=== PATIENT | female | born 1980 ===

== ENCOUNTER 2018-11-16 15:27 | Outpatient (RCR) | payer OTHER ==
[2018-09-14 16:31] VITALS: BP 130/80
--- NOTE | 2018-09-15 21:55 | [facility] ONCOLOGY NOTE ---
EVENT DATE: September 14, 2018 REFERRING PHYSICIAN GUSTAVO Coy REASON FOR CONSULTATION Evaluation and management of iron deficiency anemia. HEMATOLOGY HISTORY Patient is a 37-year-old female with insignificant past medical history who was found to have iron deficiency anemia since February 2016. Her ferritin in February 2016 was 5, and in May 2017, it was 13. In May 2018, it was 4, and on September 06, 2018, it was 10. The patient has been taking one capsule of iron supplementation daily for the last three months. Patient denies any excessive menses or GI bleeding. She had an injury after skiing, and she had pain in her neck, left shoulder, and left hip, and she has been using a lot of aspirin and nonsteroidal anti-inflammatory drugs for years. Her CBC on the August showed white count 5.2, hemoglobin 11.7, hematocrit 36.3, and platelet count 192,000. MCV was low at 79. Iron studies showed ferritin of 10, serum iron 16, iron saturation 5%, TIBC 317. PAST MEDICAL HISTORY Insignificant. PAST SURGICAL HISTORY Tonsillectomy. FAMILY HISTORY Paternal grandmother had pancreatic cancer. Paternal grandfather had prostate cancer. Her father has arteriovenous malformation of the lower spine. SOCIAL HISTORY Patient is single with no children. 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 She is a never smoker. She drinks alcohol rarely. Denies any abuse of illicit drugs. CURRENT MEDICATIONS 1. Gabapentin 300 mg daily. 2. Escitalopram oxalate 10 mg daily. 3. Pantoprazole 40 mg daily. 4. Bupropion 200 mg daily. 5. vitamin with iron one capsule daily. ALLERGIES No known drug allergies. REVIEW OF SYSTEMS CONSTITUTIONAL: No appetite or weight change. No fever, chills or sweating. No recent infection. HEENT: Ears: No tinnitus or hearing problem. Nose: No nasal discharge or epistaxis. Throat: No sore throat or mouth ulcers. Eyes: No diplopia or visual changes. RESPIRATORY: She has shortness of breath. No cough, expectoration, or hemoptysis. CARDIOVASCULAR: No chest pain, orthopnea, or paroxysmal nocturnal dyspnea (PND). No edema. No palpitations. GASTROINTESTINAL: No nausea or vomiting. No diarrhea. She has constipation. No change in bowel movements. No heartburn or swallowing difficulties. No abdominal pain. No jaundice. No hematemesis, melena or rectal bleeding. GENITOURINARY: No hematuria or dysuria. MUSCULOSKELETAL: She has pain in the neck, left shoulder, and left hip due to her previous injury. NEUROLOGICAL: No tingling or numbness in the hands or feet. No headaches or convulsions. HEMATOLOGIC/LYMPHATIC: No bleeding or easy bruising. She is weak, tired, and fatigued. No enlarged lymph nodes. SKIN: No skin rash or lumps. PSYCHIATRIC: No anxiety or depression. PHYSICAL EXAMINATION GENERAL: Looks stable. Well developed, well nourished, and in no acute distress. VITAL SIGNS: Blood pressure 130/80, pulse 107 per minute, respirations 16 per minute, temperature 98.4, pulse ox 96 % on room air. HEENT: Head: Atraumatic. No sinus tenderness to palpation. Eyes: No icterus or conjunctivitis. Mouth and throat: No oral thrush or mucositis. NECK: Supple. No cervical or supraclavicular lymphadenopathy. LUNGS: Clear to auscultation and percussion bilaterally. HEART: Regular rate and rhythm. No gallops, murmurs, clicks, or rubs. ABDOMEN: Soft and lax. No tenderness. No hepatosplenomegaly. No masses. EXTREMITIES: No cyanosis, clubbing, or edema. LYMPHATICS: No peripheral lymphadenopathy. NEUROLOGICAL: Conscious, alert, and oriented times three. No focal motor or sensory deficits. PSYCHIATRIC: Mood and affect appear normal. SKIN: No skin rash, bruise, or purpuric eruption. ASSESSMENT Iron deficiency anemia. Cause is obscure at the moment. I am planning to check her stools for fecal blood as the patient does not have any heavy periods or having gastrointestinal bleeding, but she has been using aspirin and nonsteroidal anti-inflammatory drugs for her pain in her neck, left shoulder, and left hip from her skiing injury in the past. The patient is using only one capsule of iron daily, which I do not think is enough to correct her iron deficiency. For this reason, I am planning to put her on ferrous sulfate 325 mg three times daily. If the patient will have positive fecal occult blood, I am planning to send the patient to Dr. Ellis for gastrointestinal workup with esophagogastroduodenoscopy and colonoscopy. I will see her in two months with CBC and iron studies with ferritin at that time. If her iron is not corrected by full-dose iron supplement in two months, then I will check for celiac disease, and I will treat her with intravenous iron supplementation. I explained that to the patient, and she is agreeable with the plan of management. PLAN 1. Ferrous sulfate 325 mg three times daily with meals. 2. Patient to return in two months with CBC and iron studies with ferritin. 3. Consider IV iron supplementation if oral iron does not correct her iron deficiency. 4. Hemoccult blood in the stools. 5. Consider GI workup if Hemoccult blood in the stools is positive. 6. Patient to contact us for any new concerns or complaints. ALISON
[~2018-11-16 15:27] MED LIST: AMOX600S32 PO; BUPR200T34; DEXAMETHASONE SOD 4 MG/ML VIAL ONE; ESCI10TA8 PO; GABA-549 PO; HYDR473S9; HYDROmorphone HCL 2 MG/ML SDV ONE; KETAMINE HCL-NS 50 MG/5 ML SYR ONE; LIDOCAINE MPF 1% 5 ML VIAL ONE; ONDA4TAB97 PO; ONDANSETRON 4 MG/2 ML VIAL ONE; PANT40SU3 PO; PNV1CAPS PO; PRED20TA6 PO; PROM25SU8 PR; PROPOFOL EMUL(*) 10MG/ML 20 ML 0 ML ONE; ROCURONIUM BROM 10 MG/ML 10 ML ONE; SUGAMMADEX SOD 200 MG/2 ML SDV ONE; fentaNYL CITR 250 MCG/5 ML AMP ONE
[2018-11-16 15:40] VITALS: BP 113/75
--- NOTE | 2018-11-18 23:04 | ONCOLOGY FOLLOW UP NOTE ---
EVENT DATE: November 16, 2018 CHIEF COMPLAINT Followup for iron deficiency anemia. HISTORY OF PRESENT ILLNESS Patient is a 37-year-old female who was seen today in followup. She continues on ferrous sulfate which she is tolerating fairly well. She has some mild constipation. She has noted no melena or abdominal pain. In terms of fatigue, she has noted much improvement. She denies excessive menses. She otherwise has no new complaints. HEMATOLOGY HISTORY Patient is a 37-year-old female who was found to have iron deficiency since February 2016. At that time, ferritin was 5, and in May 2017, it was 13. In August 2018, it had decreased to 10. She was started on ferrous sulfate 325 mg t.i.d. She denies excessive menses and has had no issues with melena or abdominal pain. PAST MEDICAL HISTORY Iron deficiency anemia. SURGICAL HISTORY Tonsillectomy. FAMILY HISTORY Paternal grandmother had pancreatic cancer. Paternal grandfather had prostate cancer. Father has an AV malformation of the lower spine. SOCIAL HISTORY Patient is single. She has no children. She works in [employer] at the [employer]. She is a never smoker. She drinks alcohol rarely. She denies any use of illicit drugs. CURRENT MEDICATIONS 1. Ferrous sulfate 325 mg t.i.d. 2. Bupropion 200 mg daily. 3. Escitalopram 10 mg daily. 4. Gabapentin 300 mg daily. 5. Pantoprazole 40 mg daily. ALLERGIES No known drug allergies. REVIEW OF SYSTEMS A 12-point review of systems is performed and is negative except as stated above. PHYSICAL EXAMINATION VITAL SIGNS: Weight 54.6 kg. BP 113/75, P 86, R 16, temp 99, O2 sat 96%. GENERAL: Patient is a well-developed, well-nourished female in no acute distress. HEAD: Normocephalic, atraumatic. EYES: Sclerae anicteric. MOUTH: Moist mucous membranes. CARDIOVASCULAR: Heart rate regular, 86 per minute, without murmur, S3, or S4. LUNGS: Clear bilaterally. EXTREMITIES: No edema. NEUROLOGIC: Nonfocal. LABORATORY CBC on 11/08/18 showed a WBC of 5.6, hemoglobin 14.3, hematocrit 41.5, platelets 190,000. Serum iron 42, iron saturation 16%, ferritin 51. IMPRESSION AND PLAN The patient is a 37-year-old female with iron deficiency anemia. She began the ferrous sulfate 325 mg t.i.d., and symptoms as well as lab work have improved significantly. She denies excessive menses or any evidence of gastrointestinal bleeding. She previously used aspirin and nonsteroidals for pain due to a skiing accident. 1. Iron deficiency anemia. Labs have improved significantly. At this point, she will continue ferrous sulfate 325 mg t.i.d. Will recheck her CBC and iron studies in three months, and further decisions will be made at that time regarding continuing treatment. 2. Gastrointestinal. Describes some mild constipation with dark stools from the iron therapy. She has had no issues with melena or abdominal pain. Orders were placed for Hemoccult blood, but this did not occur. However, as labs have improved significantly, will defer at this time. 3. Follow up in three months for continued care. CBC and iron studies will be drawn at [facility] before that appointment. ALISON
== END 2018-12-12 ==
LOC: ONC 15:27
PROVIDERS: ATTEND Internal Medicine Hematology
DX: D50.9 Iron deficiency anemia, unspecified (principal); K59.00 Constipation, unspecified
CPT/HCPCS: 99202; 99212; J1100; J1170; J2001; J2405; J2704; J3010; J3490

== ENCOUNTER 2019-02-13 14:20 | Outpatient (RCR) | payer OTHER ==
[~2019-02-13 14:20] MED LIST changes: -DEXAMETHASONE SOD 4 MG/ML VIAL ONE; -HYDROmorphone HCL 2 MG/ML SDV ONE; -KETAMINE HCL-NS 50 MG/5 ML SYR ONE; -LIDOCAINE MPF 1% 5 ML VIAL ONE; -ONDANSETRON 4 MG/2 ML VIAL ONE; -PROPOFOL EMUL(*) 10MG/ML 20 ML 0 ML ONE; -ROCURONIUM BROM 10 MG/ML 10 ML ONE; -SUGAMMADEX SOD 200 MG/2 ML SDV ONE; -fentaNYL CITR 250 MCG/5 ML AMP ONE
[2019-02-13 14:29] VITALS: BP 124/81
--- NOTE | 2019-02-14 11:40 | ONCOLOGY FOLLOW UP NOTE ---
EVENT DATE: February 13, 2019 CHIEF COMPLAINT Followup for iron deficiency anemia. HISTORY OF PRESENT ILLNESS Laxmi is a 37-year-old woman who is being seen today for followup on her iron deficiency anemia. She was placed on iron sulfate t.i.d. back in August. She reports that she remains on oral ferrous sulfate but decreased herself down to one pill per day, although admits that she was not instructed to do so. She has been tolerating this well. She has some mild constipation related to that but reports that this is manageable. She has not noted any melena. No abdominal pain. As far as fatigue, she continues to report improvement. She has some fatigue but tells me this is not as severe as it was when she first was diagnosed. She denies any heavy menses. She denies any PICA syndrome, including no significant chewing on ice or dirt. Appetite is good. No fevers or chills. She has only occasional joint aches in her hands bilaterally but reports that this may be more degenerative in nature and unrelated to her iron deficiency anemia. 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 She recently returned from vacationing in [place]. HEMATOLOGY HISTORY Patient is a 37-year-old female who was found to have iron deficiency since February 2016. At that time, ferritin was 5, and in May 2017, it was 13. In August 2018, it had decreased to 10. She was started on ferrous sulfate 325 mg t.i.d. She denies excessive menses and has had no issues with melena or abdominal pain. PAST MEDICAL HISTORY Iron deficiency anemia. SURGICAL HISTORY Tonsillectomy. FAMILY HISTORY Paternal grandmother had pancreatic cancer. Paternal grandfather had prostate cancer. Father has an AV malformation of the lower spine. SOCIAL HISTORY Patient is single. She has no children. 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 She is a never smoker. She drinks alcohol rarely. She denies any use of illicit drugs. CURRENT MEDICATIONS 1. Ferrous sulfate 325 mg t.i.d. 2. Bupropion 200 mg daily. 3. Escitalopram 10 mg daily. 4. Gabapentin 300 mg daily. 5. Pantoprazole 40 mg daily. ALLERGIES No known drug allergies. REVIEW OF SYSTEMS CONSTITUTIONAL: Patient denies any recent fevers, chills or night sweats. No recent infections. She has some fatigue but overall this has improved. HEENT: No vision changes. No tinnitus. No mouth sores. No PICA syndrome. LUNGS: No cough, sputum production, hemoptysis or pleuritic chest pain. ENDOCRINE: No heat or cold intolerance. She has some chronic fatigue, although this has been improving since initiating oral iron. The remainder of a 12-point review of systems is performed today and is otherwise negative. PHYSICAL EXAMINATION VITAL SIGNS: Weight 120.8 pounds, stable, T 97.9, P 85, R 16, BP 124/81, oxygen saturation 95% room air. GENERAL: This is a pleasant 37-year old woman who appears well-developed, well- nourished and is in no acute distress. HEAD: Normocephalic, atraumatic. EYES: Sclerae anicteric. ENT/MOUTH: Moist mucous membranes. No oral ulcerations. NECK: Supple. No lymphadenopathy. CARDIOVASCULAR: Heart rate regular with normal rhythm. No ectopy. LUNGS: Clear bilaterally. No focal findings. ABDOMEN: Soft, nontender, nondistended. Bowel sounds positive x4. EXTREMITIES: No edema. No clubbing or cyanosis. NEUROLOGIC: Patient is awake, alert and oriented x3. No focal, motor or sensory deficits. PSYCH: Mood and affect are appropriate. MUSCULOSKELETAL: Strength is 5/5. Gait is steady. LABORATORY CBC on February 07, 2019: Labs done at [facility] - WBC 6.2, ANC 3.2, hemoglobin 14.6, hematocrit 44.1%, platelets 222,000, ferritin 20, down from 51 on January 29, 2019. Iron saturation 17%, up from 16 on October 31, 2018. CMP was unremarkable. She did have cholesterol panel there, which revealed LDL elevated at 106, triglycerides elevated at 208 and VLDL elevated at 42. Glucose was normal at 76. TSH normal at 3.1. IMPRESSION AND PLAN The patient is a 37-year-old female with iron deficiency anemia. She was initiated on ferrous sulfate 325 mg t.i.d. and her overall symptoms as well as her blood work have continued to improve significantly since that time. She denies any excessive menses or any evidence of gastrointestinal bleeding. She previously used aspirin and nonsteroidals for pain due to a skiing accident but is no longer utilizing these. She remains on oral iron but self-decreased this to once a day. She tells me that she just simply thought she needed to decrease it since her labs had improved. She denies any difficulty with tolerance. She does have mild constipation related to it but reports it is quite manageable. We reviewed her most recent labs today, which were done at [facility] on February 07, 2019. We discussed that positive effects from oral iron do take some time. 1. Iron deficiency: Patient currently has iron deficiency but no evidence of anemia based on recent labs. Her ferritin did drop a bit compared to last visit, although iron saturation is improved and normal and hemoglobin and hematocrit are also normal. As such, I have instructed patient to continue on oral ferrous sulfate 325 mg and to increase this to two tablets a day. Her energy is stable to improved and hopefully this will continue to improve with bumping her dose back up to two a day. 2. We discussed side effects, especially constipation, and she is well-versed on ways to help mitigate this. She is aware that it is common to see dark stools related to iron therapy. 3. She will continue to repeat labs at [facility]. She will return to clinic in three months for follow up with us, evaluation of recent labs at that time and ongoing care. 4. If her symptoms worsen, she is to notify us in the interim. Also, we briefly discussed potentially utilizing intravenous iron in the future should her counts begin to decline on oral iron or if she becomes symptomatic. ALISON
== END 2019-05-13 ==
LOC: ONC 14:20
PROVIDERS: ATTEND Internal Medicine Hematology
DX: D50.9 Iron deficiency anemia, unspecified (principal); Z79.899 Other long term (current) drug therapy
CPT/HCPCS: 99212